=== PATIENT | male | born 1940 | race Caucasian/White ===

== ENCOUNTER 2023-07-24 12:32 | Outpatient (CLI) | payer MEDICARE, SELFPAY ==
--- NOTE | ~2023-07-24 | PE_ITS ---
EXAMINATION: PET_PETPSMAST_PT DATE: 07/24/2023 16:11 INDICATION: Malignant neoplasm of prostate. TECHNIQUE: 9.504 mCi of piflufolastat F-18 was administered intravenously. Low dose computed tomograp hy (CT) images were acquired from the base of the brain to the proximal thighs for attenuation correc tion and anatomic localization. Automated exposure control was employed. Dose-length product (DLP) wa s 650 mGy-cm. Positron emission tomography (PET) images were acquired in the same distribution. COMPARISON: None FINDINGS: Head/neck: There are likely changes of ocular lens replacement surgeries. There is mucosal thickening in the paranasal sinuses and fluid in right maxillary sinus. There are no pathologically enlarged ly mph nodes. Chest: The lungs demonstrate mild atelectasis. There is a 5 mm nodule in right upper lobe, likely marky ign. There is a 3 mm and 4 mm nodules in left upper lobe, likely benign. Calcified right lung nodules and calcified right hilar and mediastinal lymph nodes are consistent with old granulomatous disease. No pleural effusion. Cardiomegaly is noted. There are coronary artery calcifications. No pericardial effusion. There is mild chronic anterior wedging of multiple thoracic vertebral bodies. Abdomen/pelvis/proximal thighs: Calcifications in the liver and spleen are consistent with old granul omatous disease. The gallbladder, pancreas, adrenal glands are normal. There is cortical thinning of the kidneys. There is a 3 mm stone in left kidney. There is calcified atherosclerosis of the aorta an d many of the other arteries. There is an umbilical hernia containing fat. There is diverticulosis of the colon without evidence of diverticulitis. There are no dilated loops of bowel. The prostate is m oderately enlarged. There is increased activity in the prostate with maximum SUV of 11.6. There are n o pathologically enlarged lymph nodes. Maximum SUV of 3.5 in a normal-sized left inguinal lymph node is probably benign. There is no free intraperitoneal fluid. There is severe lumbar spondylosis. There is chronic anterior wedging of L1 and L2 vertebral bodies. There are changes of anterior and posteri or fusion procedures at L4-L5. IMPRESSION: 1. Moderately enlarged prostate with increased activity, consistent with memory malignancy. 2. No specific evidence of metastatic disease. Reviewed, dictated and finalized at location A. [facility]
== END 2023-07-24 12:33 | disposition home or self-care (01) ==
PROVIDERS: PCP Family Medicine; Visit Provider Radiology Radiation Oncology
DX: Z51.0 Encounter for antineoplastic radiation therapy (principal); C61 Malignant neoplasm of prostate; N40.0 Benign prostatic hyperplasia without lower urinary tract symptoms; Z19.1 Hormone sensitive malignancy status
CPT/HCPCS: 78815; A9595